=== PATIENT | male | born 1965 ===

== ENCOUNTER 2018-08-12 15:58 | Emergency (ER) | payer SELFPAY | END 2018-08-12 16:44 | LOC: ERS 15:58 | DX: H60.91 Unspecified otitis externa, right ear (principal); E03.9 Hypothyroidism, unspecified; E78.5 Hyperlipidemia, unspecified; I10 Essential (primary) hypertension; F32.9 Major depressive disorder, single episode, unspecified | CPT/HCPCS: 99282 ==